=== PATIENT | male | born 1955 | race Caucasian/White ===

== ENCOUNTER 2017-02-04 12:42 | Inpatient (IN) | END 2017-02-05 14:50 | disposition home or self-care (01) | DRG 247 | DX: I21.09 ST elevation (STEMI) myocardial infarction involving other coronary artery of anterior wall (principal); E87.0 Hyperosmolality and hypernatremia; E78.5 Hyperlipidemia, unspecified; Z72.0 Tobacco use; I25.5 Ischemic cardiomyopathy; E87.6 Hypokalemia ==